=== PATIENT | male | born 1980 | race Caucasian/White ===

== ENCOUNTER 2021-10-10 10:48 | Emergency (ER) | payer MEDICAID ==
[2021-10-10] MEDS ORDERED: hydrOXYzine HCl 50 MG/ML SDV IM ONE (10:55)
[2021-10-10] MEDS ORDERED: HYDROmorphone 2 MG/ML SDV IM ONE (10:55)
== END 2021-10-10 11:37 ==
LOC: FB.ED 10:48
DX: N50.82 Scrotal pain (principal)
CPT/HCPCS: 96372; 99281; 99283; J1170; J3410

== ENCOUNTER 2021-10-11 12:32 | Emergency (ER) | payer MEDICAID ==
[2021-10-11] MEDS ORDERED: Levofloxacin/Dextrose 5%-Water 750 MG in Premix Bag 1 BAG IV ONE (12:49)
[2021-10-11] MEDS ORDERED: Ketorolac 30 MG/ML SDV IVPUSH ONE (12:49)
[2021-10-11] MEDS ORDERED: Sodium Chloride 0.9% 10 ML Syringe FLUSH PRN (12:49)
[2021-10-11] MEDS ORDERED: Ketorolac 30 MG/ML SDV IM ONE (12:53)
[2021-10-11] MEDS ORDERED: Levofloxacin 750 MG Tab PO STA (12:53)
== END 2021-10-11 13:35 | disposition home or self-care (01) ==
LOC: FB.ED 12:32
DX: N45.2 Orchitis (principal); Z91.013 Allergy to seafood
CPT/HCPCS: 96372; 99282; 99283; A9270-GY; J1885